=== PATIENT | female | born 1960 | race Two or more races ===

== ENCOUNTER 2017-02-02 23:20 | Emergency (ER) | payer OTHER ==
[~2017-02-02] VITALS: Ht 162.6 cm; Wt 68.0 kg
[2017-02-02 23:25] VITALS: BP 130/82
--- NOTE | 2017-02-03 00:05 | NUR ---
Pt refuse to be seen by er md. pt [id number] verbalize all risks explained regarding leaving AMA. pt verbalize understanding. [employer] officers at bedside to take pt in custody.
== END 2017-02-03 00:16 | disposition left against medical advice (07) ==
LOC: ER 23:23
DX: Z53.21 Procedure and treatment not carried out due to patient leaving prior to being seen by health care provider (principal)
CPT/HCPCS: A4606; Z7610